=== PATIENT | female | born 1955 | race Caucasian/White ===

== ENCOUNTER 2024-10-15 17:13 | Emergency (ER) | payer MEDICARE ==
[~2024-10-15] VITALS: Ht 152.4 cm; Wt 72.1 kg
[~2024-10-15 17:13] MED LIST: ALBUTEROL0.09 MG/A2 INH; DICLOFENAC50 MG PO; KEFLEX500 MG PO; Meclizine25 MG PO; ROBITUSSIN AC 110 ML PO
[2024-10-15 17:23] VITALS: BP 126/41
[2024-10-15] MEDS ORDERED: Acetaminophen/Hydrocodone 5 MG/325 MG TABLET PO ONE (18:10)
[2024-10-15 18:18] LABS: BASO # 0.1 10*3/uL (0.0-0.1); BASO % 0.9 % (0.0-1.0); EOS # 0.4 10*3/uL (0.0-0.4); EOS % 3.9 % (1.0-4.0); HEMATOCRIT 40.5 % (37.0-47.0); MEAN CORPUSCULAR HGB 27.3 pg (27.0-31.0); MEAN CORPUSCULAR HGB CONC 30.6 g/dl (33.0-37.0); MEAN PLATELET VOLUME 8.7 fl (9.6-12.3); MONO # 0.6 10*3/uL (0.1-1.0); MONO % 6.7 % (3.0-9.0); NEUT # 5.2 10*3/uL (2.3-7.9); NEUT % 57.1 % (47.0-73.0); PLATELET COUNT AUTOMATED 217 10*3/uL (130-400); RED BLOOD COUNT 4.55 10*6/uL (4.10-5.10); RED CELL DISTRI WIDTH 18.2 % (0-14.5); WHITE BLOOD COUNT 9.1 10*3/uL (4.8-10.8)
[2024-10-15 18:37] LABS: POTASSIUM 4.2 mmol/L (3.4-5.1)
[2024-10-15] MEDS ORDERED: CYCLOBENZAPRINE5 M3 PO (20:08)
[2024-10-15] MEDS ORDERED: PREDNISONE50 MG PO (20:08)
== END 2024-10-15 20:18 | disposition home or self-care (01) ==
LOC: ED 17:13
PROVIDERS: Physician Assistant Medical
DX: M54.50 Low back pain, unspecified (principal); M79.661 Pain in right lower leg; I50.9 Heart failure, unspecified; Z86.711 Personal history of pulmonary embolism; Z79.899 Other long term (current) drug therapy; Z90.711 Acquired absence of uterus with remaining cervical stump; Z95.0 Presence of cardiac pacemaker; Z86.718 Personal history of other venous thrombosis and embolism